=== PATIENT | male | born 1985 | race Caucasian/White ===

== ENCOUNTER → 2017-04-08 | Outpatient (CLI) | payer OTHER ==
--- NOTE | 2017-04-08 14:13 | CPEEG ---
[f rep st] ELECTROENCEPHALOGRAM DATE OF STUDY: 04/08/2017 INTERPRETATION: This 4-hour video EEG recording is normal. There were no potentially epileptogenic abnormalities present in the awake or sleep recordings. The patient did not have any clinical events during the video EEG monitoring session. REPORT: This 4-hour video EEG contains 9 to 10 Hz alpha activity to the posterior head regions. The re was no abnormal activation at rest, during photic stimulation or hyperventilation. The patient be came drowsy and fell into sustained sleep during the study. During drowsiness, the patient had the n onspecific activation of benign small spikes of sleep (BSSS). These are of no clinical significance. The patient did not have any abnormal activation during drowsiness, sleep, or during times of arous al. During deeper stages of sleep, the BSSSs resolved. The patient did not have any clinical events during the video EEG monitoring session. /[id number]/MODL
== END ==
LOC: FCPNEURO 07:42
PROVIDERS: ATTEND Psychiatry & Neurology Neurology
DX: G40.909 Epilepsy, unspecified, not intractable, without status epilepticus (principal)